=== PATIENT | male | born 1965 | race Caucasian/White ===

== ENCOUNTER 2017-06-30 14:50 | Emergency (ER) | payer OTHER ==
[~2017-06-30] VITALS: Ht 177.8 cm; Wt 143.6 kg
[2017-06-30 14:53] VITALS: BP 141/82
== END 2017-06-30 18:44 | disposition home or self-care (01) ==
LOC: EME 14:50
DX: M79.89 Other specified soft tissue disorders (principal); M79.662 Pain in left lower leg; S83.92XA Sprain of unspecified site of left knee, initial encounter; W19.XXXA Unspecified fall, initial encounter; Y93.E9 Activity, other interior property and clothing maintenance; Y92.009 Unspecified place in unspecified non-institutional (private) residence as the place of occurrence of the external cause
CPT/HCPCS: 73564; 93971; 99281; 99283